=== PATIENT | female | born 1950 | race Caucasian/White ===

== ENCOUNTER → 2018-08-03 | Outpatient (CLI) | payer OTHER, MEDICARE | LOC: BRMIMAGING 10:11 | PROVIDERS: ATTEND Internal Medicine | DX: M19.072 Primary osteoarthritis, left ankle and foot (principal); M47.894 Other spondylosis, thoracic region; M51.34 Other intervertebral disc degeneration, thoracic region; M40.204 Unspecified kyphosis, thoracic region; M47.897 Other spondylosis, lumbosacral region | CPT/HCPCS: 72070-PO; 72114-PO; 73630-PO ==